=== PATIENT | male | born 1980 | race Caucasian/White ===

== ENCOUNTER 2018-09-21 00:16 | Emergency (ER) | payer OTHER ==
[~2018-09-21] VITALS: Ht 182.9 cm; Wt 117.9 kg
[2018-09-21 00:19] VITALS: Ht 182.9 cm; Wt 117.9 kg
[2018-09-21 03:28] VITALS: BP 130/94
== END 2018-09-21 03:25 | disposition home or self-care (01) ==
LOC: ED 00:16
DX: S71.111A Laceration without foreign body, right thigh, initial encounter (principal); S00.91XA Abrasion of unspecified part of head, initial encounter; W22.8XXA Striking against or struck by other objects, initial encounter; Y93.89 Activity, other specified; Y92.89 Other specified places as the place of occurrence of the external cause; Y99.8 Other external cause status
CPT/HCPCS: J2001